=== PATIENT | female | born 1945 | race Caucasian/White ===

== ENCOUNTER 2020-06-20 14:28 | Inpatient (IN) | payer OTHER ==
[~2020-06-20] VITALS: Ht 167.6 cm; Wt 49.9 kg
[~2020-06-20 14:28] MED LIST: COREG3.125 MG PO; CYMBALTA60 MG PO; DICLOFENAC POTA50 MG PO; FLONASE 0.05%50 MCG NASAL; HUMIRA40 MG/0.1 SQ; LIDODERM 5%1 PATC1 TRANSDERM; LISINOPRIL40 MG PO; LISINOPRIL5 MG PO; METHOTREXA25 MG/1 M1 IJ; MS CONTIN15 MG PO; OXYCODONE HCL 55 MG PO; OXYCONTIN10 M1 PO; RESTASIS1 EACH OPHTHALMIC; VOLTAREN GEL 1100 G2 TOP
[2020-06-21] MEDS ORDERED: ARIPIPRAZOLE10 MG PO (12:09)
[2020-06-21] MEDS ORDERED: DILTIAZEM 24HR180 M1 PO (12:11)
[2020-06-21] MEDS ORDERED: ESOMEPRAZOLE MA40 MG PO (12:12)
[2020-06-21] MEDS ORDERED: FOLIC ACID1 MG PO (12:13)
[2020-06-21] MEDS ORDERED: HUMIRA PEN40 MG/0.4 SUBQ (12:14)
[2020-06-21] MEDS ORDERED: ALPRAZOLAM1 MG PO (12:16)
[2020-06-21] MEDS ORDERED: LEVOTHYROXINE50 MCG PO (12:20)
[2020-06-21] MEDS ORDERED: B COMPLEX WITH1 EAC1 PO (12:25)
[2020-06-21] MEDS ORDERED: BENEFIBER1 EAC1 PO (12:26)
[2020-06-21] MEDS ORDERED: BIOTIN5 MG PO (12:27)
[2020-06-21] MEDS ORDERED: MILK OF MA400 MG/5 M PO (12:28)
[2020-06-21] MEDS ORDERED: SUPER THERAVIT1 EACH PO (12:28)
[2020-06-21] MEDS ORDERED: MIRALAX119 GM PO (12:29)
[2020-06-21] MEDS ORDERED: MILK THISTLE175 M3 PO (12:29)
[2020-06-21] MEDS ORDERED: ZOFRAN ODT4 MG PO (12:30)
[2020-06-21] MEDS ORDERED: SALINE MIST44 ML NASAL (12:32)
[2020-06-21] MEDS ORDERED: ZINC SULFATE50 M1 PO (12:33)
[2020-06-21] MEDS ORDERED: CALCIUM500 MG PO (12:34)
[2020-06-21] MEDS ORDERED: COQ-1030 MG PO (12:35)
[2020-06-21] MEDS ORDERED: COLACE100 MG PO (12:36)
[2020-06-21] MEDS ORDERED: ESTER-C 500 MG1 EACH PO (12:36)
[2020-06-21] MEDS ORDERED: MAGNESIUM250 M1 PO (12:37)
[2020-06-21] MEDS ORDERED: MEGESTROL400 MG/11 PO (12:38)
[2020-06-21] MEDS ORDERED: METHOTREXATE 22.5 M1 SUBQ (12:39)
[2020-06-21] MEDS ORDERED: BAZA CR.1 E1 TOP (12:48)
[2020-06-21 13:56] VITALS: BP 102/49
[2020-06-21 14:06] LABS: MCV 81.4 fL (80.0-100.0)
[2020-06-21 14:08] LABS: ABSOLUTE NEUTROPHILS 8.8 thou/uL (1.4-8.2); BASOPHILS 0.5 % (0.0-2.0); EOSINOPHILS 1.5 % (0.0-3.0); HEMATOCRIT 26.8 % (37.0-47.0); HEMOGLOBIN 8.7 gm/dL (12.0-15.0); LYMPHOCYTES 12.5 % (24.0-44.0); MCH 26.3 pg (26.0-34.0); MCHC 32.3 g/dL (28.0-37.0); MONOCYTES 8.5 % (1.0-8.0); PLATELET COUNT 493 thou/uL (150-400); WBC 11.4 thou/uL (4.0-11.0)
[2020-06-21 14:27] LABS: CALCIUM 8.7 mg/dL (8.5-10.1); CREATININE 0.8 mg/dL (0.6-1.0); POTASSIUM 4.8 mmol/L (3.5-5.1)
[2020-06-21 14:33] LABS: ALBUMIN 2.2 g/dL (3.4-5.0); TOTAL BILIRUBIN 0.3 mg/dL (0.2-1.0); TOTAL PROTEIN 6.9 g/dL (6.4-8.2)
[2020-06-21 15:30] LABS: FOLIC ACID 59.8 ng/mL (8.6-58.9)
[2020-06-21 17:37] VITALS: BP 114/48
[2020-06-21 20:09] VITALS: BP 110/50
--- NOTE | 2020-06-21 20:20 | NUR ---
ASSUMED CARE OF PATIENT APPROX 1200. PATIENT FROM [facility]. PATIENT STATES SHE STAYS AT [facility]. PATIENT A&OX4, VSS, PAIN BUTTOCKS. PAIN MEDICATION GIVEN. PATIENT ATE AROUND 25% OF LUNCH AND DINNER. PATIENT HAS SMALL APPETITE. UNABLE TO GET TO WOUND CARE AND WOUND PHOTO, ONCOMING NURSE AWARE. PATIENT CAME IN TO FLOOR WITH PICC, DOUBLE LUMEN, RIGHT UPPER ARM AND MILAN. NO SIGNS OF DISTRESS. WILL CONTINUE TO MONITOR.
--- NOTE | 2020-06-22 03:47 | NUR ---
Pt. rested quietly during the night when checked on during frequent rounds. She was given po pain medication (see emar) for c/o sacral pain with some relief. Treatment done to sacral wound as ordered and wound picture taken. Pt. turned and repositioned. Bed alarm is on.
[2020-06-22 07:21] VITALS: BP 116/54
--- NOTE | 2020-06-22 09:36 | NUR ---
If pt has PEG placement, recommend start Pivot 1.5 at 30ml/hr with goal of 45ml/hr.
--- NOTE | 2020-06-22 12:19 | NUR ---
PT ADMITTED A TRANSFER FROM [facility] RELATED TO CHRONIC NONHEALING INFECTED ULCER. CM MET WITH PT AT BEDSIDE THIS DAY. PT APPEARED TO BE A&O X4. CM ROLE INTRODUCED. PT INDICATED HE HAD BEEN AT [facility] SKILLED PRIOR TO HOSPITALIZATION. SHE HAD BEEN THERE FOR SHORT TERM SKILLED REHAB STAY. PT INDICATED THAT PRIOR TO THAT SHE HAD BEEN LIVING IN A HOUSE WITH HER SON STEFANIA AND HIS FAMILY WITH 3 STEPS TO ENTER AND NONE INSIDE. SHE INDICATED SHE HAD BEEN USINGA 4WW WITH A SEAT. SHE INDICATED HAD HCBS THROUGH A [employer] CALLED QUALITY 2.5 HRS 3 DAYS A WEEK. PT INDICATED THAT HER GOAL WOULD BE TO RETURN HOME EVENTUALLY BUT THAT SHE WAS RECEPTIVE TO POST CONTINUED POST ACUTE CARE STAY IF NEEDED. CM SPOKE WITH LENIN IN ADMISSIONS AT [facility] AND THEY INDICATED THEY WOULD BE ABLE TO ACCEPT PT BACK IF NEEDED ONCE MEDICALLY STABLE. CM CALLED AND SPOKE WITH PT'S SON STEFANIA AND HE INDICATED THAT PT'S HCBS WAS RECENTLY INCREASED TO 7 AND A QUARTER HOURS 5 DAYS A WEEK. HE STATED THAT PT HAD BEEN AT [facility] SINCE FOR WC AND REHAB. GOAL IS FOR PT TO EVENTUALLY DC HOME. HE MENTIONED THAT DR. BARNES IS PT'S WC DOC AND THAT THERE HAD BEEN TALK OF HAVING A FLAP PROCEDURE DONE AT SOME POINT. DR. MOLINA INDICATED PLAN TO DO DEBRIDEMENT, COLOSTOMY, AND POSSIBLE PEG TOMORROW. PT IS ON IV VANC. CM FOLLOWING REGARDING DC PLANNING.
[2020-06-22 15:05] VITALS: BP 116/45
[2020-06-22] MEDS ORDERED: BISACODYL10 MG RECTAL (16:00)
[2020-06-22] MEDS ORDERED: LISINOPRIL20 MG PO (16:06)
[2020-06-22] MEDS ORDERED: RASUVO 2525 MG/0.5 SUBQ (16:14)
[2020-06-22] MEDS ORDERED: SANTYL OINTMENT30 G1 TOP (16:21)
[2020-06-22] MEDS ORDERED: SALINE MIST44 ML NASAL (16:22)
[2020-06-22 19:51] VITALS: BP 134/55
--- NOTE | 2020-06-22 20:56 | NUR ---
PT A&OX4, VSS, C/O OF SACRUM PAIN. PATIENT HAS MILAN, IV FLUIDS RAN. PATIENT CONTINUES TO HAVE DECREASED APPETITE, DENIES N/V. PATIENT COVID TEST SENT TO LAB. UNABLE TO COMPLETE DRESSING CHANGE AND NOTIFIED ONCOMING NURSE. PATIENTS GO LYTELY WAS DC'D BEFORE I HAD THE CHANCE TO GIVE IT TO HER. PATIENT ON CLEAR LIQUID FOR LUNCH AND DINNER AND NPO AFTER MIDNIGHT. NO SIGNS OF DISTRESS. WILL CONTINUE TO MONITOR.
[2020-06-22 21:28] VITALS: BP 134/55
--- NOTE | 2020-06-23 01:08 | NUR ---
PT AOX4. PT REPORTS 8-9/10 PAIN IN SACRUM. PT RECEIVING PRN PO NORCO Q4HR AND PRN PO OXYCODONE Q4HR. PT TOLERATING PO INTAKE OF FLUIDS AND CLEAR LIQUID DIET WITHOUT ISSUE, NPO AT MIDNIGHT. PT WITHOUT NAUSEA OR EMESIS. PT RESTING IN BED THROUGHOUT SHIFT, FREQUENT REPOSITIONING ENCOURAGED, REPOSITIONING ASSISTANCE PROVIDED, LOW AIR LOSS MATTRESS IN PLACE. SENSATION INTACT THROUGHOUT, CAPILLARY REFILL LESS THAN 3SEC IN ALL EXTREMITIES. PT REFUSING HS WOUND CARE AFTER EDUCATION AND REASSURANCE. PT EXPRESSES INTEREST IN MAINTAINING CURRENT DRESSING UNTIL SURGERY. PROVIDED REASSURANCE TO PT THAT PT HAS THE RIGHT TO REFUSE PROCEDURES AND CARES EMPHASIZING THAT INFORMATION WILL BE PROVIDED PRIOR TO. DRESSING AND CHUX SATURATED WITH GREEN, PURULENT DRAINAGE. PT ENCOURAGED TO NOTIFY STAFF FOR ALL NEEDS, CALL LLIGHT WITHIN REACH, BED ALARM ON, BED LOCKED IN LOWEST POSITION, FREQUENT MONITORING WILL CONTINUE.
[2020-06-23 05:32] LABS: HEMATOCRIT 23.8 % (37.0-47.0); HEMOGLOBIN 7.9 gm/dL (12.0-15.0); MCHC 33.1 g/dL (28.0-37.0); MCV 81.8 fL (80.0-100.0); RBC 2.91 mil/uL (4.20-5.00); RDW 18.1 % (10.5-14.5); WBC 8.3 thou/uL (4.0-11.0)
[2020-06-23 06:06] LABS: CALCIUM 8.4 mg/dL (8.5-10.1); CREATININE 0.7 mg/dL (0.6-1.0); POTASSIUM 4.9 mmol/L (3.5-5.1)
[2020-06-23 06:21] LABS: URINE BILIRUBIN NEGATIVE (Negative); URINE BLOOD NEGATIVE (Negative); URINE CLARITY CLEAR; URINE COLOR YELLOW; URINE GLUCOSE-RANDOM* NEGATIVE (Negative); URINE KETONES TRACE (Negative); URINE NITRITE-REFLEX NEGATIVE (Negative); URINE PROTEIN (DIPSTICK) NEGATIVE (Negative); URINE SPECIFIC GRAVITY 1.015 (1.005-1.035)
[2020-06-23 06:23] LABS: URINE LEUKOCYTES-REFLEX 2+ (Negative)
[2020-06-23 06:48] LABS: CASTS None Seen /LPF (None Seen); MUCUS 0-3 Light strn/LPF (None Seen); SQUAMOUS 0-3 Few /LPF (0-3)
[2020-06-23 06:49] LABS: BACTERIA-REFLEX 1-9 Few /HPF (None Seen); CRYSTALS None Seen /LPF (None Seen); URINE RBC 0-2 Rare /HPF (0-2); YEAST-REFLEX Present (None Seen)
[2020-06-23 07:24] VITALS: BP 136/46
[2020-06-23 11:20] VITALS: BP 130/64
[2020-06-23 11:31] VITALS: BP 133/64
[2020-06-23 11:46] VITALS: BP 136/64
[2020-06-23 12:32] VITALS: BP 142/62
--- NOTE | 2020-06-23 14:30 | NUR ---
PT HAD DEBRIDEMENT, DIVERTING COLOSTOMY, AND PEG THIS DAY. PT CONTINUES ON IV VANC AND ZOSYN. PT WILL LIKELY BE HERE OVER WEEKEND. 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 CLINICAL UPDATE SENT. CM TO FOLLOW UP WITH PT, SON, AND CARE TEAM REGARDING DC RECOMMENDATIONS AND NEEDS PT PROGRESSES.
--- NOTE | 2020-06-23 18:53 | O ---
[facility] [place] [address] OPERATIVE REPORT Name: EULA MANSFIELD Room #: 453-P ADM IN M.R.#: [id number] Admission: 06/21/20 Attend Phys: Pancho Mancuso MD Discharge: Date of : 41 Report #: [id number] THIS REPORT FOR: cc: Jamil Amor James DO Soliman, Mohsin Q. MD [facility] ~ DATE OF SERVICE: 06/23/2020 PREOPERATIVE DIAGNOSES: 1. Severe stage 4 sacral decubitus wound with chronic soilage. 2. Severe protein-calorie malnutrition. POSTOPERATIVE DIAGNOSES: 1. Severe stage 4 sacral decubitus wound with chronic soilage. 2. Severe protein-calorie malnutrition. PROCEDURES PERFORMED: 1. Diverting loop transverse colostomy. 2. Esophagogastroduodenoscopy (EGD) with placement of a percutaneous endoscopic gastrostomy (PEG) tube. 3. Excisional debridement of skin, subcutaneous tissue, muscle and bone of a severe stage 4 sacral decubitus wound ultimately measuring 15.5 x 13 cm in dimension (201.5 square cm). Preoperative wound measurements were 9 x 9 cm in dimension with periwound erythema, undermining and induration. SURGEON: Ester Chang MD MULTIPLE PRESSURE RIVETER OPERATOR: DARWIN Vergara. ANESTHESIA: General endotracheal anesthesia. ESTIMATED BLOOD LOSS: 20 mL. COMPLICATIONS: None appreciated. SPECIMENS: All debrided tissue to pathology. INDICATIONS: The patient is a 74-year-old female with a longstanding history of a progressively worsening stage 4 sacral decubitus wound that is near the anal orifice and has had chronic and consistent stool soiling the wound preventing ongoing wound healing. In addition, the patient has severe protein-calorie malnutrition with albumin of around 2 and after thorough consultation with the patient as well as wound care service, indication was for the above-mentioned procedures today. [facility] [address] [place] [address] OPERATIVE REPORT Name: EULA MANSFIELD Luis F Room #: 453-P [facility] IN M.R.#: [id number] Admission: 06/21/20 Attend Phys: Pancho Mancuso MD Discharge: Date of : 41 Report #: [id number] DESCRIPTION OF PROCEDURE: After explaining the risks, benefits and alternatives of the procedure with the patient in detail in the preoperative holding area and obtaining consent, the patient was brought to the operating room and placed supine on the operating room table. After conducting a thorough timeout procedure verifying correct patient and procedure, the patient was given general endotracheal anesthesia. Once adequate anesthesia was obtained, her SCDs were hooked up to pneumatic compression device and she was given a preoperative dose of antibiotics in line with the SCIP protocol. The patient was then positioned in the prone position with all pressure points appropriately padded and her sacral wound was prepped and draped in standard surgical sterile fashion. Electrocautery was used to circumferentially debride all nonviable skin, subcutaneous tissue and muscle/fascia from the periphery of the wound carried down to the bed of the wound where there was exposed coccyx that was debrided back with rongeurs. The bone was sent to microbiology for appropriate microbiologic analysis. Hemostasis was assured with electrocautery. The Corindusonix ultrasonic debridement tool was now used to remove all remaining nonviable tissue and biofilm from the entirety of the wound. Again, electrocautery was used for hemostasis. The wound was then packed tightly with thrombin-soaked Gelfoam as well as Kerlix gauze, 4 x 4s, fluffs, ABDs and Medipore tape. The patient was then repositioned in the supine position on the operating room table where the Fujinon upper endoscope was used to intubate the oropharynx, traversed down to the second portion of the duodenum. Slow and careful withdrawal of the scope showed no evidence of duodenitis, gastritis, esophagitis, mass lesions or ulcerations. Retroflexion view showed a small hiatal hernia. The scope was straightened out in the gastric lumen where the stomach was fully insufflated and the appropriate position of the left upper quadrant was identified for placement of a PEG tube. This was identified with manual external ballottement as well as easy transillumination through the abdominal wall. This site was prepped and draped in standard surgical sterile fashion and 5 mL of 1% plain lidocaine were used to anesthetize the skin. A #11 bladed scalpel was used to create a 7-mm transverse skin incision through which the needle-sheath apparatus was directed through the anterior gastric wall under direct vision with the upper endoscope. Once intraluminal access was identified, the needle was removed and a wire was placed down the sheath which was grasped using a loop snare down the EGD scope. The entire EGD scope and loop snare were then removed via the oropharynx, bringing the wire through with it. A pull-type 24-Irish PEG tube was then affixed to the wire and pulled down through the anterior gastric and anterior abdominal castro under direct vision with the upper endoscope. This was measured to be at 2.5 cm at the abdominal wall level externally to prevent potential erosion of the internal flange. The wire was then cut off of the PEG tube and the external flange clamp and end adaptor were applied in standard fashion. The Fujinon upper endoscope was used to desufflate the gastric lumen and the scope was removed and passed off the field. The entire abdominal domain was now prepped and draped in standard surgical sterile fashion. A #10 bladed scalpel was used to create a 2.5 cm [facility] [address] [place] [address] OPERATIVE REPORT Name: EULA MANSFIELD Room #: 453-P ADM IN M.R.#: [id number] Admission: 06/21/20 Attend Phys: Pancho Mancuso MD Discharge: Date of : 41 Report #: [id number] vertical incision in the right upper abdomen midway between the umbilicus and the xiphoid approximately 2 cm to the right of midline. This was carried down through skin and subcutaneous tissues with electrocautery until I arrived upon the fascia, which was scored vertically revealing the right rectus muscle. The muscle fibers of the rectus was spread laterally with a hemostat revealing the posterior rectus sheath, which was grasped between hemostats and entered into the abdomen with Metzenbaum scissor dissection. A finger was then placed in the abdomen and this was used to control the entire fascial incision with electrocautery to prevent injury via thermal burn to the underlying structures. The transverse colon was seen to remove reside immediately posterior to this incision. The mid transverse colon was grasped with a Domingo clamp and elevated into the bed of the wound. I then made a colotomy with electrocautery on the antimesenteric border. Once the colotomy was made, a hemostat was placed through this and assisted me in opening the colotomy extended longitudinally to prevent injury from the back wall with electrocautery. Once the colotomy was enlarged appropriately, I matured the colostomy using 3-0 Vicryl as imbricating sutures at the 12, 3, 6, and 9 o'clock positions in standard Pamela fashion, grabbing full thickness bites of the colon anchoring to the seromuscular layer deeper and then to the dermis. This imbricated it slightly and the 4 resultant quadrants were anchored at the mucocutaneous juncture using short runs of 3-0 Vicryl in standard fashion. Digital finger intubation of both the afferent and efferent loops showed them patent to a subfascial level. Sterile colostomy appliance was then applied completing the procedure. At the end of the procedure, all instrument, needle and sponge counts were correct. The patient tolerated the procedure without incident, was awakened in the operating room, transitioned to the recovery room in stable condition with no apparent complications. <ELECTRONICALLY SIGNED> By: Ester Chang MD, FACS 06/23/20 [id number] Ester Chang MD, FACS /nt
[2020-06-23 20:10] VITALS: BP 118/61
--- NOTE | 2020-06-23 20:12 | NUR ---
Assumed pt in the afternoon post PEG, colonoscopy and I and D. VS stable with no signs or verbalizations of distress noted. Pt refused to be turned, PEG tube feeding is to start 24 hours post placement. Dessing is c/d/i, heel protectors ordered and placed. POC followed, endorsed to the night nurse.
[2020-06-24 05:39] LABS: HEMATOCRIT 20.5 % (37.0-47.0); WBC 9.8 thou/uL (4.0-11.0)
[2020-06-24 05:41] LABS: HEMOGLOBIN 6.8 gm/dL (12.0-15.0); MCV 81.8 fL (80.0-100.0); RBC 2.5 mil/uL (4.20-5.00)
--- NOTE | 2020-06-24 05:45 | NUR ---
Pt. rested quietly during the night when checked on during frequent rounds. She was given pain meds (see emar) for c/o sacral pain with some relief noted. Dressing to sacral area is dry and intact. Bed alarm is on. Pt. turned and repositioned.
[2020-06-24 05:48] LABS: CALCIUM 8.4 mg/dL (8.5-10.1); CREATININE 0.8 mg/dL (0.6-1.0); POTASSIUM 4.5 mmol/L (3.5-5.1)
[2020-06-24 07:59] VITALS: BP 126/58
[2020-06-24 16:00] VITALS: BP 148/68
--- NOTE | 2020-06-24 16:12 | NUR ---
Assumed pt care this am, VS stable, bed bath was given today. Colostomy has minimal out put for this shift. Tube feeding started today, Pivot 1.5 running at 20 with a goal rate of 45. Q2 turns done, wound care and dressing change completed. Pain is managed with medications. MD informed of Hgb is 6.8 as of 4 am. Awaiting orders.
[2020-06-24 19:31] VITALS: BP 127/49
--- NOTE | 2020-06-25 06:46 | NUR ---
Pt. rested quietly at intervals during the night when checked on during frequent rounds. She c/o sacral pain and pain meds given (see emar) with some relief noted. Colostomy bag is putting out liquid stool, although pt. did have a semi-hard med stool from rectum one time. Peg tube feeding infusing without difficulty. Bed alarm is on.
[2020-06-25 08:30] VITALS: BP 137/62
[2020-06-25 10:04] LABS: HEMATOCRIT 24.6 % (37.0-47.0); HEMOGLOBIN 8.1 gm/dL (12.0-15.0); MCH 26.6 pg (26.0-34.0); MCHC 32.8 g/dL (28.0-37.0); MCV 81.1 fL (80.0-100.0); RBC 3.04 mil/uL (4.20-5.00); RDW 18.2 % (10.5-14.5); WBC 7.8 thou/uL (4.0-11.0)
[2020-06-25 10:21] LABS: ALBUMIN 1.8 g/dL (3.4-5.0); CALCIUM 8.3 mg/dL (8.5-10.1); CREATININE 0.7 mg/dL (0.6-1.0); PHOSPHORUS 2.1 mg/dL (2.6-4.7); POTASSIUM 3.5 mmol/L (3.5-5.1)
--- NOTE | 2020-06-25 11:50 | NUR ---
Assumed pt care at 7am.Pt in bed slleping on and off.Assessment completed.vss. Pt refused breakfast.Dr Mcqueen here and order noted.Colostomy bag emptied by buyer internship.Tube feeding and ivf in progress.Iv team replaced picc line drsg and cxray done to check pikk line placement per protocol.Sacral decub drsg intact.Will continue to monitor.
[2020-06-25 20:22] VITALS: BP 160/78
--- NOTE | 2020-06-26 02:46 | NUR ---
PT CARE ASSUMED WITH PT IN BED AT 1910.PT IS A/O X4.PT IS ON BEDREST AND Q2 TURN.PT HAS A MILAN AND A COLOSTOMY IN PLACE.PT HAS A PEG TUBE AND ON PIVOT 1.5 AT 35CC/HR AND GOAL RATE IS 45.PT HAS AN AIRLOSS MATTRESS IN PLACE..IV PICC DOUBLE LUMEN ON JOSE CARLOS WITH NS AT 75CC/HR.PT HAD OXYCODONE FOR PAIN MANAGEMENT AND TYLENOL FOR HIGH TEMP 99.1.PT TAKE MEDICATION WHOLE WITH NO ISSUES.WILL CONTINUE TO MONITOR
[2020-06-26 07:26] VITALS: BP 149/73
[2020-06-26 08:15] VITALS: BP 149/73
--- NOTE | 2020-06-26 11:48 | NUR ---
OSTOMY CARE; AWAKE, ALERT, COOPERATIVE, RECEPTIVE TO OSTOMY EDUCATION, PT VOICED CONCERNS WHETHER SHE WILL BE ABLE TO MANAGE STOMA ON OWN WHEN HOME TO DUE ATHRITIC HANDS, INFORMED PT STAFF WILL WORK WITH PT ON OSTOMY CARE, NEW POUCH CHIQUIS 2 PIECE SYSTEM APPLIED, STOMA PINK VIABLE BUDDED, EDEMATOUS, LIQ BROWN STOOL NOTED, PERISTOMAL SKIN INTACT, INFO AND SUPPLIES LEFT AT BS RECOMMENDATIONS; CHANGE POUCH Q3-5DAYS AND PRN, EMPTY PRN RESIDENTIAL DOOR INSTALLER AWARE
--- NOTE | 2020-06-26 15:24 | NUR ---
CLINICAL UPDATE WAS SENT TO JAMES AT [facility]. THEY INDICATED THAT THEY WOULD PREER PT SWITCH TO [facility] IF POSSIBLE BUT THAT THEY ARE OTHERWISE ABLE TO ACCEPT PT BACK ONCE MEDICALLY STABLE. CM SPOKE WITH PT AND SON AND LET THEM KNOW THAT. CM SPOKE WITH THEM ABOUT LTAC LEVEL OF CARE A POSSIBLE APPROPRIATE OPTION. CM SPOKE WITH PT AND SON ABOUT LTAC AN OPTION. THEY ARE TO DISCUSS THIS EVENING WITH PT'S TO OTHER CHILDREN. CM TO FOLLOW INDICATED WITH DC PLANNING.
--- NOTE | 2020-06-26 15:37 | NUR ---
This RN agrees with the assessment of the CONSTRUCTION CONSULTANT.
[2020-06-26 16:13] VITALS: BP 132/63
--- NOTE | 2020-06-26 16:26 | NUR ---
ASSUMED CARE OF PATIENT AT SHIFT CHANGE. ASSESSMENT CHARTED. MEDICATIONS ADMINISTERED PER JUN. VSS. PATIENT IS A&OX4 AND ABLE TO MAKE NEEDS KNOWN. ON BEDREST; FREQUENT REPOSITIONING OFFERED AND COMPLETED NEEDED/REQUESTED. PATIENT WAS OFFERED WOUND CARE MULTIPLE TIMES THIS SHIFT HOWEVER PATIENT IS PUSHING IT BACK FOR A "LATER TIME". COLOSTOMY INTACT; OUTPUT LOOSE/BROWN; EMPTIED FREQUENTLY THIS SHIFT. PEG TUBE FEEDING ADVANCED TO CC/HR. PATIENT DENIES FULLNESS OR DISCOMFORT. 10CC RESIDUAL PEG TUBE FEEDING. NORCO ADMINISTERED THIS SHIFT PER JUN FOR PATIENT PAIN AT 09/14 AND PROVIDED SOME RELIEF. MILAN PATENT W GOOD OUTPUT. FALL PRECAUTIONS REMIAN IN PLACE. WILL CONTINUE TO MONITOR AND FOLLOW PLAN OF CARE
[2020-06-26 20:09] VITALS: BP 127/64
--- NOTE | 2020-06-27 03:55 | NUR ---
Assumed pt care at 1900. A/OX4 with forgetfulness noted. VSS.C/o pain to back/sacrum,medicated per EMAR,repositioned every 2hrs with relief reported. Wound care completed at HS w/o any problems,cultures sent to lab. PICC on RUE patent with fluids infusing. Pt has a PEG tube with Pivot 1.5 infusing at goal rate of 45ml/hr at this time w/o any problems.Colostomy intact with loose stools. Fall precautions in place,calls approp for help.Resting quietly at this time,will continue to monitor pt.
[2020-06-27 08:11] VITALS: BP 159/85
--- NOTE | 2020-06-27 14:32 | NUR ---
CM ATTEMPTED TO VIST WITH PT BUT SHE WAS SLEEPING. CM CALLED PT'S SON AND HE INDICATED THAT HE HIS MOM AND SIBLINGS HAD SPOKEN AND THEY ARE INTERESTED IN PT BEING ASSESSED FOR ADMISSION TO [facility]. REFERRAL SENT FOR REVIEW. CM NOTIFIED LIAISON OF REFERRAL. PT CONTINUES ON IV ABX, WC, COLOSTOMY, PT NOW AT GOAL RATE FOR TF. CM FOLLOWING REGARDING DC PLANNING.
[2020-06-27 16:30] VITALS: BP 134/71
--- NOTE | 2020-06-27 16:35 | NUR ---
FAXED REFERRAL TO [facility] RECEIVED CONFIRMATION AND LEFT MSG WITH CARMITA IN ADM.
--- NOTE | 2020-06-27 17:22 | NUR ---
ASSUMED CARE OF PATIENT AT SHIFT CHANGE. ASSESSMENT CHARTED. MEDICATIONS ADMINISTERED PER JUN. VS REMAIN STABLE. PATIENT IS A&OX4 AND MAKES NEEDS KNOWN. ON BEDREST, OFFERED REPOSITIONING Q2HRS AND NEEDED. WOUND CARE COMPLETE THIS DAY BY DRYER AND WASHER MECHANIC. MILAN INTACT AND DRAINING WELL. ABX INFUSING ON R UA PICC W NO ISSUES. PATIENT STILL ON PIVOT 1.5 NOW INFUSING AT GOAL RATE OF 45ML/HR W NO ISSUES. DENIES ABD PAIN OR FULLNESS. RES. AMT 10ML. COLOSTOMY INTACT W LOOSE BROWN OUTPUT. NO ISSUES THIS SHIFT. PATIENT VOICES NO FURTHER NEEDS. WILL CONTINUE TO MONITOR PATIENT AND FOLLOW PLAN OF CARE
[2020-06-27 20:22] VITALS: BP 154/80
--- NOTE | 2020-06-28 05:59 | NUR ---
Assumed pt care at 1900. A/OX4 with forgetfulness noted but able to make needs known. VSS. C/o pain to upper back/sacrum repositioned as tolorated. Pt declined having wound care done this shift after two prompts. Colostomy patent with liquid stools. Abbott flushed once d/t c/o need to void and effective;draining yellow urine. RUE PICC patent with abts infusing. Fall precautions in place,will continue to monitor pt.
[2020-06-28 08:05] VITALS: BP 141/83
--- NOTE | 2020-06-28 09:35 | NUR ---
Nutrition: pt tolerating goal rate tube feeds. C/O no appetite and TF meeting 100% of needs. REC transition to nocturnal regimen of Pivot 1.5 at 70 mL/hr x 12 hrs (7p-7a) to meet 80% of needs til further po trends established. Also recommend tray set up at all meals to increase PO success.
--- NOTE | 2020-06-28 10:28 | NUR ---
OSTOMY CARE; AWAKE, ALERT, POUCH INTACT, NO LEAKAGE, BROWNISH LIQ STOOL NOTED, QUESTIONS ANSWERED REGARDING OSTOMY CARE, SUPPLIES AT BS, WILL CONT TO FOLLOW
--- NOTE | 2020-06-28 11:08 | PATH ---
[facility] [address] [place] [address] PATHOLOGY RPT PROCEDURE Name: EULA CLARKE Room #: 453-P ADM IN M.R.#: [id number] Admission: 06/21/20 Date of : 41 Discharge: Report #: [id number] Path Case #: [id number] L[facility] Accession Number: [id number] . 01 Material submitted: . buttock - SACROGLUTEAL DECUBITUS ULCER . 01 Clinical history: . SACRAL DECUBITUS INCISION AND DRAINAGE SACRAL WOUND CHRONIC NONHEALING INFECTED ULCER . 02 Diagnosis: Sacralgluteal decubitus ulcer, debridement: - Ulceration along with gangrenous necrosis and extensive fibrinoid degeneration as well as hemorrhage. (IUV:funeral home director; 06/26/2020) MBR 06/26/2020 1656 Local . 02 Electronically signed: . Tiffani Rizzo MD, Pathologist NPI- [id number] . 01 Gross description: . The specimen is received in formalin, labeled "Eula Clarke, sacrogluteal decubitus ulcer". Received are several segments of yellow-taylor to matthew-taylor soft tissue with attached pale taylor skin measuring 7.8 x 6.3 x 2.5 cm in aggregate dimensions. Sectioning reveals pink-taylor to red-brown cut surfaces. The specimen is submitted representatively in cassette A1. (CAA; 06/25/2020) QAC/QAC 06/25/2020 1232 Local . 02 Pathologist provided ICD-10: L98.499, I96 . 02 CPT . 904363 Specimen Comment: A courtesy copy of this report has been sent to [phone] Specimen Comment: Report sent to Specimen Comment: A duplicate report has been generated due to demographic updates. Performed at: [address] [id number] MD Casimiro Chawla MD Phone: [phone] Performed at: 02 [facility] [address] [place] [address] PATHOLOGY RPT PROCEDURE Name: EULA CLARKE Room #: 453-P ADM IN M.R.#: [id number] Admission: 06/21/20 Date of : 41 Discharge: Report #: [id number] Path Case #: [id number] [address] [place] [id number] MD Tiffani Rizzo MD Phone: [phone]
--- NOTE | 2020-06-28 12:00 | NUR ---
[facility] INDICATED THAT THEY ARE ABLE TO ACCEPT PT ONCE MEDICALLY STABLE. NURSE INDICATED THAT WC TEAM ARE ANTICIPATING PLACING A WOUND VAC THIS DAY. CM AWAITING INPUT FROM CARE TEAM TO WHEN PT MIGHTBE MEDICALLY STABLE TO DC TO LT[facility]. CM FOLLOWING REGARDING DC PLANNING.
[2020-06-28 14:29] LABS: HEMATOCRIT 20.8 % (37.0-47.0); LYMPHOCYTES 16.4 % (24.0-44.0); RBC 2.51 mil/uL (4.20-5.00)
[2020-06-28 14:30] LABS: ABSOLUTE NEUTROPHILS 7.7 thou/uL (1.4-8.2); BASOPHILS 0.8 % (0.0-2.0); HEMOGLOBIN 6.9 gm/dL (12.0-15.0); MCH 27.3 pg (26.0-34.0); MCV 82.7 fL (80.0-100.0); MONOCYTES 6.1 % (1.0-8.0); PLATELET COUNT 308 thou/uL (150-400); POLYS 72.7 % (36.0-66.0); WBC 10.5 thou/uL (4.0-11.0)
[2020-06-28 14:48] LABS: ALBUMIN 0.8 g/dL (3.4-5.0); ANION GAP 17 mmol/L (7-16); BUN 13 mg/dL (7-18); CHLORIDE 120 mmol/L (98-107); CO2 16 mmol/L (21-32); CREATININE 0.5 mg/dL (0.6-1.0); GLUCOSE 83 mg/dL (74-106); SGOT 15 U/L (15-37); SGPT 14 U/L (30-65); SODIUM 153 mmol/L (136-145); TOTAL BILIRUBIN 0.1 mg/dL (0.2-1.0); TOTAL PROTEIN 3.7 g/dL (6.4-8.2)
[2020-06-28 14:54] LABS: CALCIUM < 5.0 mg/dL (8.5-10.1); MAGNESIUM 0.9 mg/dL (1.8-2.4)
[2020-06-28 17:12] LABS: ANISOCYTOSIS 2+
[2020-06-28 17:13] LABS: HYPOCHROMASIA 1+; POLYCHROMASIA SLIGHT
[2020-06-28 18:15] VITALS: BP 133/73
[2020-06-28 18:33] VITALS: BP 136/58; BP 138/72
--- NOTE | 2020-06-28 18:48 | NUR ---
ASSUMED CARE OF PATIENT AT SHIFT CHNAGE. ASSESSMENT CHARTED. MEDS ADMINISTERED PER JUN. VSS. TUBE FEEDING AT 45ML/HR W NO ISSUES. 0ML RESIDUAL. PATIENT IS A&OX4 AND C/O PAIN ROBERT. AFTER REPOSITIONING. PATIENT ON LOW AIRLOSS MATRESS, PRAFO BOOTS AND SCD'S IN PLACE. COLOSTOMY INTACT. MILAN INTACT. RIGHT UPPER ARM PICC ABLE TO HAVE BLOOD DRAWN X1 THIS SHIFT. 2ND ATTEMPT AT BLOOD DRAW UNSUCCESSFUL. VAT PAGED FOR ACTIVASE AND WILL CHECK 06/29/20. WOUND CARE COMPLETE AND PHOTO TAKEN. PATIENT RECIEVING BLOOD TRANSFUSION W NO ISSUES. TIRED AND RESTING AT THIS TIME. FALL PRECAUTIONS IN PLACE. WILL ENDORSE TO DEBORAH YUSUF
[2020-06-28 20:02] VITALS: BP 145/68
[2020-06-28 23:41] LABS: HEMATOCRIT 28.1 % (37.0-47.0)
[2020-06-28 23:43] LABS: CREATININE 0.7 mg/dL (0.6-1.0); MAGNESIUM 2.1 mg/dL (1.8-2.4)
[2020-06-28 23:53] LABS: CALCIUM 7.9 mg/dL (8.5-10.1); POTASSIUM 4.3 mmol/L (3.5-5.1)
[2020-06-28 23:59] LABS: ABSOLUTE RETIC COUNT 0.1481 10^6/uL; OBSERVED RETIC COUNT 2.39 % (0.6-2.6)
[2020-06-29 00:05] LABS: % SATURATION 29 % (20-39); IRON 32 ug/dL (50-170); TIBC 111 ug/dL (250-450)
[2020-06-29 07:34] VITALS: BP 127/49
--- NOTE | 2020-06-29 08:21 | NUR ---
OSTOMY CARE; AWAKE, ALERT, COOPERATIVE, RECEPTIVE TO OSTOMY EDUCATION BUT CONCERNED SHE WILL NEED MUCH HELP W/ STOMA WHEN HOME, REASSURANCE GIVEN AND SUGGESTED TO CONT WATCHING NURSES CARE FOR OSTOMY, STOMA PINK VIABLE BUDDED, EDEMATOUS, LIQ BROWN STOOL NOTED, NEW POUCH CHIQUIS 2 POUCH APPLIED W/ ADAPT RING UNDER WAFER, INFO AND SUPPLIES AT BS, WILL CONT TO FOLLOW RECOMMENDATIONS; CHANGE POUCH Q 3-5 DAYS AND PRN, EMPTY PRN NUCLEAR TECHNOLOGIST AWARE
--- NOTE | 2020-06-29 11:30 | NUR ---
CM S/W [facility] W[facility] - [phone] - STATED THEY HAVE BED AVAIL AND ARE ABLE TO ACCEPT PT TODAY. [facility]IN WOULD LIKE A 1600 PICKUP TIME. NUMBER TO CALL REPORT IS [phone]. RM 506. DR. RABAGO/RUBIN STEWARD. FAX- [phone]. PT ROUNDS UPDATE: DR GONZALEZ INDICATED D/C IS PENDING CULTURES, ETC.
--- NOTE | 2020-06-29 13:53 | NUR ---
sergio spk w/Stanley with [facility] and informed him the pt will pt picked up via stretcher transportation approx 1630. rn notified and provided number to call report [phone]. pt will be in room 506. sergio notifed pt's son, alina, and pt. alina asked sergio to ensure pt's cell phone was charge. sergio checked and it was charging, as alina would like to contact pt once she is "settled in" at [facility]. D/c senior production plannercleopatra, to arrange transportation and fax orders.
--- NOTE | 2020-06-29 14:19 | NUR ---
PT DISCHARGING TODAY TO [facility] FAXED DC ORDERS/SUMMARY TO FACILITY SPOKE WITH BIN IN ADM HE RECEIVED ORDERS AND THAT TRANSPORT ARRANGED FOR STRETCHER VAN [facility] TRIP #[id number] THEY WILL DIE MECHANIC PT BETWEEN [phone]. NOTIFIED UNIT AND CHART COPY PER US.
[2020-06-29 16:57] VITALS: BP 127/49; BP 138/65
--- NOTE | 2020-07-03 15:56 | HC ---
[facility] [place] [address] CONSULTATION Name: EULA MANSFIELD Room #: 453-P [facility] IN M.R.#: [id number] Admission: 06/21/20 Attend Phys: Pancho Mancuso MD Discharge: 06/29/20 Date of : 41 Report #: [id number] THIS REPORT FOR: cc: Jamil Amor James DO Althoff,Harley Webb MD ~ DATE OF SERVICE: 06/21/2020 CHIEF COMPLAINT: Sacral pressure ulceration. HISTORY OF PRESENT ILLNESS: This is a 74-year-old female patient who is admitted to the hospital from [facility]. She has had a nonhealing pressure ulcer to her sacrum. She is otherwise alert. It is unclear as to how long it has been present, although some reports indicated that she has been dealing with this for the last 3 years. She has undergone multiple debridements, last in 03/2020. She currently has a PICC line present. PAST MEDICAL HISTORY: Positive for gastroesophageal reflux disease, hypertension, opioid dependence, rheumatic disease, details unknown as well as osteoporosis. ALLERGIES: No known drug allergies. MEDICATIONS: Include lisinopril, oxycodone, morphine, Humira, Lidoderm, methotrexate, diltiazem, esomeprazole, folic acid, levothyroxine, methotrexate, Megestrol. SOCIAL HISTORY: Negative for alcohol or tobacco use. FAMILY HISTORY: Noncontributory. REVIEW OF SYSTEMS: CONSTITUTIONAL: The patient denies fever, chills, or weight loss. NEUROLOGICAL: The patient denies focal weakness, numbness or tingling. EYES: The patient denies visual changes, redness, or drainage. ENT: The patient denies earache, nose and throat. CARDIOVASCULAR: The patient denies chest pain, palpitations or diaphoresis. PULMONARY: The patient denies cough or shortness of breath. GASTROINTESTINAL: The patient denies nausea, vomiting, diarrhea, abdominal pain. ORTHOPEDIC: The patient is aware of the sacral pressure ulceration. Other systems in a 14-point review of systems are negative. PHYSICAL EXAMINATION: VITAL SIGNS: At this time include blood pressure 116/54, temperature 37.1, [facility] [address] [place] [address] CONSULTATION Name: EULA MANSFIELD Room #: 453-P [facility] IN M.R.#: [id number] Admission: 06/21/20 Attend Phys: Pancho Mancuso MD Discharge: 06/29/20 Date of : 41 Report #: [id number] pulse 76, and respiratory rate 16. GENERAL: This is a chronically ill-appearing female patient who appears to be in minimal distress. HEENT: Head is normocephalic. NECK: Supple. LUNGS: Clear. ABDOMEN: Soft, nontender. EXTREMITIES: Examination of the sacral region demonstrates a very large sacral pressure ulcer with some bony exposure present. There is a mix of fibrin and a moderate amount of slough on the surface, very little granulation tissue. NEUROLOGIC: The patient is awake. She appears to be moving symmetrically. LABORATORY DATA: Include white blood cell count is 11.4 with hemoglobin of 8.7, and hematocrit 28.6. Sodium is 132, potassium 4.8, chloride 98, CO2 of 23, BUN 21, creatinine 0.8, glucose 139, total protein is 6.9 with an albumin of 2.2. CLINICAL IMPRESSION: 1. Stage 4 sacral pressure ulcer. 2. Hypertension. 3. Gastroesophageal reflux disease. 4. Hypothyroidism. 5. Rheumatoid arthritis. 6. Generalized debility. 7. Severe protein-calorie malnutrition with albumin of 2.2. RECOMMENDATIONS: At this point in time, we will recommend a quarter strength Dakin's moist gauze b.i.d. and p.r.n., low air loss surface with q. 2 hour turning and positioning. Discussed with the patient in detail possible interventions that aggressive care would include sacral debridement as well as diverting colostomy and PEG tube placement. At this point in time, she does wish to proceed with such and we will consult General Surgery. Continue with aggressive nutritional support as much as possible until we have a PEG tube in place and continued medical management of her underlying issues. I appreciate being asked to see her in consultation. <ELECTRONICALLY SIGNED> By: Harley Bacon MD 07/03/20 [id number] Harley Bacon MD /nt
== END 2020-06-29 19:47 | DRG 579 ==
LOC: 4W 14:28
PROVIDERS: Anesthesiology; Hospitalist; Internal Medicine; Nurse Practitioner; ADMIT Internal Medicine; ATTEND Internal Medicine
DX: L89.154 Pressure ulcer of sacral region, stage 4 (principal); E43 Unspecified severe protein-calorie malnutrition; M46.28 Osteomyelitis of vertebra, sacral and sacrococcygeal region; Z68.1 Body mass index [BMI] 19.9 or less, adult; K21.9 Gastro-esophageal reflux disease without esophagitis; I10 Essential (primary) hypertension; M81.0 Age-related osteoporosis without current pathological fracture; E03.9 Hypothyroidism, unspecified; R53.81 Other malaise; M06.9 Rheumatoid arthritis, unspecified; R62.7 Adult failure to thrive; G89.4 Chronic pain syndrome; G62.9 Polyneuropathy, unspecified; I48.91 Unspecified atrial fibrillation; D64.9 Anemia, unspecified; Z66 Do not resuscitate; Z20.822 Contact with and (suspected) exposure to COVID-19; Z90.710 Acquired absence of both cervix and uterus; Z79.891 Long term (current) use of opiate analgesic; Z79.01 Long term (current) use of anticoagulants; Z86.711 Personal history of pulmonary embolism
CPT/HCPCS: 10047; 50010; 50093; 50101; 50386; 50403; 56524; 57092; 57119; 57120; 62110; 62900; 65130; 70005

== ENCOUNTER 2020-08-11 10:14 | Emergency (ER) | payer OTHER ==
[~2020-08-11] VITALS: Ht 167.6 cm; Wt 52.2 kg
[~2020-08-11 10:14] MED LIST changes: +ALPRAZOLAM1 MG PO; +ARIPIPRAZOLE10 MG PO; +B COMPLEX WITH1 EAC1 PO; +BAZA CR.1 E1 TOP; +BENEFIBER1 EAC1 PO; +BIOTIN5 MG PO; +BISACODYL10 MG RECTAL; +CALCIUM500 MG PO; +COLACE100 MG PO; +COQ-1030 MG PO; +DILTIAZEM 24HR180 M1 PO; +ESOMEPRAZOLE MA40 MG PO; +ESTER-C 500 MG1 EACH PO; +FOLIC ACID1 MG PO; +HUMIRA PEN40 MG/0.4 SUBQ; +LEVOTHYROXINE50 MCG PO; +LISINOPRIL20 MG PO; +MAGNESIUM250 M1 PO; +MEGESTROL400 MG/11 PO; +METHOTREXATE 22.5 M1 SUBQ; +MILK OF MA400 MG/5 M PO; +MILK THISTLE175 M3 PO; +MIRALAX119 GM PO; +RASUVO 2525 MG/0.5 SUBQ; +SALINE MIST44 ML NASAL; +SANTYL OINTMENT30 G1 TOP; +SUPER THERAVIT1 EACH PO; +ZINC SULFATE50 M1 PO; +ZOFRAN ODT4 MG PO
[2020-08-11 11:31] VITALS: BP 103/44
== END 2020-08-11 11:33 ==
LOC: ER 10:14
DX: K94.23 Gastrostomy malfunction (principal); M06.9 Rheumatoid arthritis, unspecified; I10 Essential (primary) hypertension; G89.29 Other chronic pain; E03.9 Hypothyroidism, unspecified; Z87.891 Personal history of nicotine dependence; Z79.899 Other long term (current) drug therapy; Z90.710 Acquired absence of both cervix and uterus

== ENCOUNTER 2020-10-18 13:51 | Emergency (ER) | payer OTHER ==
[~2020-10-18] VITALS: Ht 167.6 cm; Wt 60.3 kg
[2020-10-18 20:18] VITALS: BP 161/77
== END 2020-10-18 15:40 | disposition home or self-care (01) ==
LOC: ER 13:51
DX: K94.23 Gastrostomy malfunction (principal); M06.9 Rheumatoid arthritis, unspecified; I10 Essential (primary) hypertension; G89.29 Other chronic pain; E03.9 Hypothyroidism, unspecified; Z87.891 Personal history of nicotine dependence; Z79.899 Other long term (current) drug therapy; Z90.710 Acquired absence of both cervix and uterus